=== PATIENT | female | born 1945 | race Asian ===

== ENCOUNTER 2020-07-31 06:45 | Day surgery (SDC) | payer MEDICARE, OTHER ==
[2020-07-30 12:08] LABS: COVID AG,FIA SOURCE NASOPHARYNGEAL
[~2020-07-31] VITALS: Ht 152.4 cm; Wt 59.1 kg
[~2020-07-31 06:45] MED LIST: ATOR10TA69 PO; HYDR25TA PO; LOSA25TA21 PO; SODIUM CHLORIDE 0.9% 1,000 ML IV ONE
[2020-07-31] MEDS ORDERED: BENZOCAINE 20% 50 MCG/SPRAY 57 GM TP ONE (06:46)
[2020-07-31] MEDS ORDERED: LIDOCAINE 2% 30 ML JELLY TP ONE (06:46)
[2020-07-31] MEDS ORDERED: ALBUTEROL SULFATE 2.5 MG/0.5 ML NEB SOLUTION NEB ONE (06:46)
[2020-07-31] MEDS ORDERED: LIDOCAINE 2% 5 ML JELLY TP ONE (06:46)
[2020-07-31] MEDS ORDERED: MIDAZOLAM HCL 2 MG/2 ML VIAL ONE (08:11)
[2020-07-31] MEDS ORDERED: FentaNYL CITRATE PF 100 MCG/2 ML VIAL ONE (08:11)
[2020-07-31] MEDS ORDERED: SODIUM CHLORIDE 0.9% 1,000 ML ONE (08:21)
[2020-07-31] MEDS ORDERED: MethylPREDNISolone SOD SUCC 125 MG/2 ML VIAL IVP ONE (09:30)
[2020-07-31] MEDS ORDERED: MethylPREDNISolone SOD SUCC 125 MG/2 ML VIAL ONE (10:29)
[2020-07-31] MEDS ORDERED: OXYGEN THERAPY IH SCH (20:00)
== END 2020-07-31 12:00 | disposition home or self-care (01) ==
LOC: SURGERY 06:45
PROVIDERS: ATTEND Internal Medicine Critical Care Medicine
DX: J38.4 Edema of larynx (principal); B37.0 Candidal stomatitis; J45.909 Unspecified asthma, uncomplicated; I10 Essential (primary) hypertension; Z86.73 Personal history of transient ischemic attack (TIA), and cerebral infarction without residual deficits; E78.00 Pure hypercholesterolemia, unspecified; Z79.899 Other long term (current) drug therapy; Z98.890 Other specified postprocedural states
CPT/HCPCS: 31623; 31624; 71045; 87070; 87101; 87205; 87206; 87220; 87426; 88108; 88184; 88185; 88312; C9803; J2250; J2930; J3010; J7030; 87015; J7613